=== PATIENT | female | born 1995 | race Caucasian/White ===

== ENCOUNTER 2016-12-25 19:44 | Emergency (ER) | payer OTHER ==
[~2016-12-25] VITALS: Ht 167.6 cm; Wt 69.3 kg
[~2016-12-25 19:44] MED LIST: TOPI100T20 PO; prozac PO; wellbutrin PO
[2016-12-25 19:50] VITALS: TEMP 36.8; Ht 167.6 cm; Wt 69.3 kg
[2016-12-25 20:35] LABS: BLOOD UREA NITROGEN 9 mg/dl (7-18); BUN/CREATININE RATIO 9.9 (10-20); CALCIUM 8.9 mg/dl (8.5-10.1); CARBON DIOXIDE 22 mmol/L (21-32); CHLORIDE 109 mmol/L (98-107); CREATININE 0.96 mg/dl (0.60-1.20); GLUCOSE 92 mg/dl (70-99); POTASSIUM 3.6 mmol/L (3.5-5.1); SODIUM 141 mmol/L (136-145)
[2016-12-25 20:41] LABS: PREG INTERNAL NEGATIVE QC NEG CLEAR BACKGROUND; PREG INTERNAL POSITIVE QC POS CONTROL LINE
--- NOTE | 2016-12-26 00:05 | EMERGENCY ROOM VISIT NOTE ---
History Report prepared by Roxie: Naa Ervin Under the Supervision of: Dr. Dexter Gunter D.O. 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 According to EMS the patient took 9 shots of vodka tonight after not drinking for 3 months. She was found by her roommates who called EMS due to the patient's vomiting while laying in bed. HPI is limited due to intoxication. Source of History: EMS History Limited By: intoxication Onset: AEROSPACE MEDICINE PHYSICIAN Position: other (g) Symptom Intensity: 9 vodka shots Associated Symptoms: + vomiting Review of Systems ROS limited to intoxication. Family History No pertinent family history Social History Smoking Status: Never Smoker Marital Status: single Housing Status: lives with roommate Occupation Status: [employer] student Current/Historical Medications Unable to Obtain Active Prescriptions or Reported Meds Allergies Coded Allergies: No Known Allergies (Unverified , 12/16/14) Physical Exam Vital Signs Date Time Temp Pulse Resp B/P Pulse Ox O2 Delivery O2 Flow Rate FiO2 12/26/16 00:47 88 103/63 99 12/25/16 22:00 87/47 95 Room Air 12/25/16 21:30 61 18 86/44 98 Room Air 12/25/16 20:32 79 12/25/16 20:10 Room Air 12/25/16 19:50 36.8 54 18 109/65 99 Room Air Physical Exam GENERAL: Laying on left side, moving all extremities saying get off me. Disheveled, breath smelled of alcohol HEAD: normocephalic and atraumatic. EYE EXAM: pupils 4 mm and reactive bilaterally OROPHARYNX: no exudate, no erythema, lips, buccal mucosa, and tongue normal and mucous membranes are moist NECK: supple, no nuchal rigidity, no adenopathy, non-tender LUNGS: Clear to auscultation. Normal chest wall mechanics HEART: no murmurs, S1 normal and S2 normal CHEST: Stable to compression anterior and posteriorly. ABDOMEN: abdomen soft, non-tender, normo-active bowel sounds, no masses, no rebound or guarding. BACK: Pelvis is stable to compression anterior and posteriorly. SKIN: no rashes and no bruising UPPER EXTREMITIES: upper extremities are grossly normal. LOWER EXTREMITIES: No pitting edema. NEURO EXAM: Alert initially agitated but following commands. No focal deficits. Medical Decision & Procedures Laboratory Results 12/25/16 20:06 Test 12/25/16 20:06 Anion Gap 10.0 mmol/L (3-11) Estimated GFR () 98.0 Estimated GFR (Non- 84.5 BUN/Creatinine Ratio 9.9 (10-20) Calcium Level 8.9 mg/dl (8.5-10.1) Human Chorionic Gonadotropin, Qual NEG (NEG) Ethyl Alcohol mg/dL 200.0 mg/dl (0-3) Laboratory results per my review. ED Course ED COURSE: Vital signs were reviewed and showed normal vitals The patients medical record was reviewed The above diagnostic studies were performed and reviewed. ED treatments and interventions as stated above. 1944: The patient was evaluated in room B5. A complete history and physical examination was performed. 1999: The patient was moved to room B4A. 8: I reevaluated the patient and she was awake and voiced that she is currently feeling good. 0035: Upon reevaluation, the patient is awake and resting comfortably. She was able to get up and ambulate.I discussed my findings with the patient and she understands and agrees with the treatment plan. The patient is able to be discharged with a ride home. Based on the patients age, coexisting illnesses, exam and lab findings the decision to treat as an outpatient was made.The patient remained stable while under my care.The patient appeared well at the time of discharge. Medical Decision Differential diagnosis includes etiologies such as alcohol intoxication, toxicologic, infection, hypoglycemia, electrolyte abnormalities, cardiac sources , intracerebral event, neurologic, as well as others were entertained. Patient is a 21-year-old female who presents the ER following taking 9 shots of vodka tonight with her friends. She started vomiting and consequently was brought in for evaluation. She has no other complaints. BMP was unremarkable. was negative. Alcohol was 200. Vitals was unremarkable. Upon reevaluation at 12 AM she was ambulating without difficulty caring a full conversation. She had no new complaints. No signs of any trauma. She was unable to contact a sober friend. She was discharged at 1245 conversing and ambulate without difficulty in a taxi. Discussed with Pt concerning signs and symptoms to watch out for. Pt was instructed to follow up with their PCP and discussed with the patient their option to return to the ED at anytime for persistent or worsening symptoms. The appropriate anticipatory guidance and out- patient management, including indications for return to the emergency department , were explained at length to the patient and understood. Impression Primary Impression: Alcohol abuse Additional Impression: Alcoholic intoxication Scribe Attestation The scribe's documentation has been prepared under my direction and personally reviewed by me in its entirety. I confirm that the note above accurately reflects all work, treatment, procedures, and medical decision making performed by me. Departure Information Dispostion Home / Self-Care Prescriptions Unable to Obtain Active Prescriptions or Reported Meds Referrals [facility] (PCP) Forms HOME CARE DOCUMENTATION FORM, IMPORTANT VISIT INFORMATION Additional Instructions Please follow up with your primary care doctor or if you are a student [facility] with in the next 24 hours. Any worsening of your symptoms, please return to the ED immediately. This includes new pain, confusion, fevers greater than 100.4, weakness or numbness in your arms or legs , or any other concerning signs or symptoms from your standpoint. Please do not drive until tomorrow afternoon as you'll be intoxicated until this morning. Problem Qualifiers Additional Impression: Alcoholic intoxication Complication of substance-induced condition: uncomplicated Qualified Codes: F10.120 - Alcohol abuse with intoxication, uncomplicated
[2016-12-26 00:47] VITALS: BP 103/63; PULSE 88; O2SAT 99
== END 2016-12-26 00:47 | disposition home or self-care (01) ==
LOC: EDBD 19:44 → C.EDB 19:45
DX: F10.120 Alcohol abuse with intoxication, uncomplicated (principal); Y90.7 Blood alcohol level of 200-239 mg/100 ml

== ENCOUNTER 2017-09-13 22:23 | Inpatient (IN) | payer OTHER ==
[~2017-09-13] VITALS: Ht 177.8 cm; Wt 64.6 kg
[2017-09-13] MEDS ORDERED: SODIUM CHLORIDE 0.9% 1000ML 1,000 ML IV STA (22:31)
--- NOTE | 2017-09-13 22:38 | EMERGENCY ROOM VISIT NOTE ---
History Report prepared by Roxie: Michael Esqueda Under the Supervision of: Dr. Jonas Marte D.O. First contact with patient: 22:24 Chief Complaint: OVERDOSE (INTENTIONAL) Stated Complaint: OVERDOSE, SEIZURE History of Present Illness This HPI is limited due to the poor cooperation of the patient. The patient is a 22 year old female who presents to the Emergency Room via EMS for a drug overdose. EMS state that police first arrived on scene and found the patient convulsing on the floor. EMS note that the patient took an unknown combination of drugs at 2145, 45 minutes prior to arrival. There was a suicide note present with the patient. security officer supervisor on scene states that the roommates phones for 911 after reading the note and watching her throw a "handful" of pills into her mouth. Source of History: EMS Onset: 45 minutes ASSISTANT MANAGER BILINGUAL Position: other (Tox) Quality: other (Drug overdose) Review of Systems Review of symptoms limited due to the poor cooperation of the patient. Past Medical & Surgical Medical Problems: (1) Intentional overdose of drug in tablet form (2) Seizure Family History No pertinent family history Social History Smoking Status: Never Smoker Marital Status: single Housing Status: lives with roommate Occupation Status: [employer] student Current/Historical Medications Unable to Obtain Active Prescriptions or Reported Meds Allergies Coded Allergies: No Known Allergies (Unverified , 12/16/14) Physical Exam Vital Signs Date Time Temp Pulse Resp B/P (MAP) Pulse Ox O2 Delivery O2 Flow Rate FiO2 09/14/17 01:04 74 18 105/61 94 Room Air 09/13/17 23:15 73 18 92/61 97 Room Air 09/13/17 22:37 97 Room Air 09/13/17 22:37 37.0 75 19 132/88 97 Room Air 09/13/17 22:36 63 Physical Exam GENERAL: Patient is awake, alert, and appears very anxious and guarded. She does not answer question's appropriately. EYES: The conjunctivae are injected bilaterally. The pupils are dilated but reactive to light. EARS, NOSE, MOUTH AND THROAT: The nose is without any evidence of any deformity. Mucous membranes are moist tongue is midline NECK: The neck is nontender and supple. RESPIRATORY: Normal respiratory effort is noted there is no evidence of wheezing rhonchi or rales CARDIOVASCULAR: Regular rate and rhythm noted there no murmurs rubs or gallops normal S1 normal S2 GASTROINTESTINAL: The abdomen is soft. Bowel sounds are present in all quadrants. Abdomen is nontender MUSCULOSKELETAL/EXTREMITIES: There is no evidence of gross deformity full range of motion is noted in the hips and shoulders SKIN: There is no obvious evidence of any rash. There are no petechiae, pallor or cyanosis noted. NEUROLOGIC: Patient is awake alert and oriented x3 strength is symmetric patellar reflexes are 2+ bilaterally PSYCH: Patient's affect is very flat, patient is refusing to answer questions. Medical Decision & Procedures ER Provider Diagnostic Interpretation: Radiology results as stated below per my review: CHEST X-RAY: Heart size is normal, no free air present, no definite infiltrate. No acute disease. CT HEAD: No acute intracranial abnormality. No ICH, mass effect or edema. Left maxillary sinus disease. Radiologist; Dallas Talbot MD Laboratory Results 09/13/17 22:40 Red Blood Count 4.88, Mean Corpuscular Volume 89.5, Mean Corpuscular Hemoglobin 32.2, Mean Corpuscular Hemoglobin Concent 35.9, Mean Platelet Volume 11.1, Neutrophils (%) (Auto) 61.5, Lymphocytes (%) (Auto) 24.4, Monocytes (%) (Auto) 10.4, Eosinophils (%) (Auto) 2.0, Basophils (%) (Auto) 1.3, Neutrophils # (Auto ) 4.36, Lymphocytes # (Auto) 1.73, Monocytes # (Auto) 0.74, Eosinophils # (Auto ) 0.14, Basophils # (Auto) 0.09 09/13/17 22:40 Test 09/13/17 22:40 09/13/17 23:00 White Blood Count 7.09 K/uL (4.8-10.8) Red Blood Count 4.88 M/uL (4.2-5.4) Hemoglobin 15.7 g/dL (12.0-16.0) Hematocrit 43.7 % (37-47) Mean Corpuscular Volume 89.5 fL (80-100) Mean Corpuscular Hemoglobin 32.2 pg (25-34) Mean Corpuscular Hemoglobin Concent 35.9 g/dl (32-36) Platelet Count 143 K/uL (130-400) Mean Platelet Volume 11.1 fL (7.4-10.4) Neutrophils (%) (Auto) 61.5 % Lymphocytes (%) (Auto) 24.4 % Monocytes (%) (Auto) 10.4 % Eosinophils (%) (Auto) 2.0 % Basophils (%) (Auto) 1.3 % Neutrophils # (Auto) 4.36 K/uL (1.4-6.5) Lymphocytes # (Auto) 1.73 K/uL (1.2-3.4) Monocytes # (Auto) 0.74 K/uL (0.11-0.59) Eosinophils # (Auto) 0.14 K/uL (0-0.5) Basophils # (Auto) 0.09 K/uL (0-0.2) RDW Standard Deviation 42.6 fL (36.4-46.3) RDW Coefficient of Variation 13.3 % (11.5-14.5) Immature Granulocyte % (Auto) 0.4 % Immature Granulocyte # (Auto) 0.03 K/uL (0.00-0.02) Prothrombin Time 10.0 SECONDS (9.0-12.0) Prothromb Time International Ratio 1.0 (0.9-1.1) Activated Partial Thromboplast Time 25.3 SECONDS (21.0-31.0) Partial Thromboplastin Ratio 1.0 Anion Gap 11.0 mmol/L (3-11) Est Creatinine Clear Calc Drug Dose 93.6 ml/min Estimated GFR () 90.4 Estimated GFR (Non- 78.0 BUN/Creatinine Ratio 8.2 (10-20) Osmolality 330 mOsm/kg (280-300) Calcium Level 8.0 mg/dl (8.5-10.1) Total Bilirubin 0.2 mg/dl (0.2-1) Direct Bilirubin mg/dl (0-0.2) Aspartate Amino Transf (AST/SGOT) 24 U/L (15-37) Alanine Aminotransferase (ALT/SGPT) 24 U/L (12-78) Alkaline Phosphatase 85 U/L (45-117) Total Creatine Kinase 98 U/L (26-192) Creatine Kinase MB 1.1 ng/ml (0.5-3.6) Creatine Kinase MB Ratio 1.1 (0-3.0) Troponin I < 0.015 ng/ml (0-0.045) Total Protein 6.7 gm/dl (6.4-8.2) Albumin 3.3 gm/dl (3.4-5.0) Lipase 105 U/L (73-393) Human Chorionic Gonadotropin, Qual NEG (NEG) Chemistry Specimen Hemolysis Salicylates Level < 1.7 mg/dl (2.8-20) Acetaminophen Level < 2 ug/ml (10-30) Ethyl Alcohol mg/dL 167.0 mg/dl (0-3) Urine Color YELLOW Urine Appearance CLEAR (CLEAR) Urine pH 7.5 (4.5-7.5) Urine Specific [place] 1.011 (1.000-1.030) Urine Protein NEG (NEG) Urine Glucose (UA) NEG (NEG) Urine Ketones NEG (NEG) Urine Occult Blood NEG (NEG) Urine Nitrite NEG (NEG) Urine Bilirubin NEG (NEG) Urine Urobilinogen NEG (NEG) Urine Leukocyte Esterase MODERATE (NEG) Urine WBC (Auto) 10-30 /hpf (0-5) Urine RBC (Auto) 0-4 /hpf (0-4) Urine Hyaline Casts (Auto) 1-5 /lpf (0-5) Urine Epithelial Cells (Auto) >30 /lpf (0-5) Urine Bacteria (Auto) 1+ (NEG) Urine Opiates Screen NEG (NEG) Urine Methadone, Qualitative NEG (NEG) Urine Barbiturates NEG (NEG) Urine Phencyclidine (PCP) Level NEG (NEG) Ur Amphetamine/Methamphetamine NEG (NEG) MDMA (Ecstasy) Screen POS (NEG) Urine Benzodiazepines Screen NEG (NEG) Urine Cocaine Metabolite NEG (NEG) Urine Marijuana (THC) POS (NEG) Laboratory results per my review. Medications Administered Medications (Trade) Dose Ordered Sig/John Route Start Time Stop Time Status Last Admin Dose Admin Sodium Chloride 1,000 ml @ 999 mls/hr Q1H1M STAT IV 09/13/17 22:31 09/13/17 23:31 DC 09/13/17 22:44 999 MLS/HR ECG Indication: toxicologic Rate (beats per minute): 85 Rhythm: normal sinus Findings: no acute ischemic change, no ectopy Comparison ECG Date: no prior available ED Course 2226: The patient was evaluated in room B1. A complete history and physical examination were performed. 223: Ordered Sodium Chloride 1000 mL @ 999 mL/hr IV. 2245: Nursing staff consulted the poison control center at this time. They state no charcoal use because the patient is at-risk for aspiration. They suggest a 24-hour observation. 0110: Dr. Gregg CASPER will observe the patient for further care. Medical Decision Differential diagnosis: Etiologies such as toxicologic, infection, hypoglycemia, electrolyte abnormalities, cardiac sources, intracerebral event, neurologic, as well as others were entertained. Nursing notes reviewed. Additional history is obtained from the prehospital personnel. Additional history is obtained from the police. The patient is a 22-year-old female who presented to the emergency department after a suspected suicidal gesture. The patient has had significant anxiety problems lately she does have a history of mental health problems and it sounds as though she took multiple doses of her medications in an attempt to harm herself. The patient arrived at the emergency department with police. Initially she was not willing to speak with me. The patient was medically cleared in the emergency department. There was a history of a seizure at the onset of the patient's overdose. Given her psychiatric medications this was felt to be a high risk situation. We discussed his case with the Poison Control Center. They have recommended that the patient be observed medically for 12-24 hours prior to medical clearance. The patient was treated with IV fluids in the emergency department. She was reevaluated multiple times. No further seizure activity was observed. The patient was evaluated by the [facility] hospitalist group for inpatient management. Consults Time Called: 0110 Consulting Physician: Dr. Gregg CASPER Hospitalist Returned Call: 0110 Dr. Gregg CASPER Hospitalist will evaluate the patient for further care. Impression Primary Impression: Polysubstance overdose Additional Impressions: Seizure Suicidal ideation Scribe Attestation The scribe's documentation has been prepared under my direction and personally reviewed by me in its entirety. I confirm that the note above accurately reflects all work, treatment, procedures, and medical decision making performed by me. Departure Information Dispostion Being Evaluated By Hospitalist Prescriptions Unable to Obtain Active Prescriptions or Reported Meds Referrals [facility] (PCP) Patient Instructions My [facility] Health Problem Qualifiers Primary Impression: Polysubstance overdose Encounter type: initial encounter Injury intent: intentional self-harm Qualified Codes: T50.902A - Poisoning by unspecified drugs, medicaments and biological substances, intentional self-harm, initial encounter
[2017-09-13 22:51] LABS: BASO % 1.3 %; BASO ABS # 0.09 K/uL (0-0.2); EOS ABS # 0.14 K/uL (0-0.5); HEMATOCRIT 43.7 % (37-47); HEMOGLOBIN 15.7 g/dL (12.0-16.0); IG# 0.03 K/uL (0.00-0.02); LYMPH % 24.4 %; LYMPH ABS # 1.73 K/uL (1.2-3.4); MEAN CELL VOLUME 89.5 fL (80-100); MEAN CORPUSCULAR HEMOGLOBIN 32.2 pg (25-34); MEAN CORPUSCULAR HGB CONC 35.9 g/dl (32-36); MEAN PLATELET VOLUME 11.1 fL (7.4-10.4); MONO % 10.4 %; MONO ABS # 0.74 K/uL (0.11-0.59); NEUT % 61.5 %; NEUT ABS # 4.36 K/uL (1.4-6.5); PLATELET COUNT 143 K/uL (130-400); RED CELL DISTRIBUTION WIDTH CV 13.3 % (11.5-14.5); RED CELL DISTRIBUTION WIDTH SD 42.6 fL (36.4-46.3); WHITE BLOOD COUNT 7.09 K/uL (4.8-10.8)
[2017-09-13 23:02] LABS: PTT PATIENT 25.3 SECONDS (21.0-31.0)
[2017-09-13 23:36] LABS: ALBUMIN 3.3 gm/dl (3.4-5.0); ALKALINE PHOSPHATASE 85 U/L (45-117); ALT/SGPT 24 U/L (12-78); AST/SGOT 24 U/L (15-37); BLOOD UREA NITROGEN 8 mg/dl (7-18); CARBON DIOXIDE 24 mmol/L (21-32); CKMB 1.1 ng/ml (0.5-3.6); CREATININE 1.02 mg/dl (0.60-1.20); GLUCOSE 91 mg/dl (70-99); LIPASE 105 U/L (73-393); POTASSIUM 3.5 mmol/L (3.5-5.1); SODIUM 142 mmol/L (136-145); TOTAL PROTEIN 6.7 gm/dl (6.4-8.2)
[2017-09-14] VITALS (7 sets, daily range): BP systolic 89–132; BP diastolic 61–110; PULSE 70–111; TEMP 36.4–36.9; O2SAT 96–99; Ht 177.8 cm; Wt 64.6 kg
[2017-09-14] MEDS ORDERED: MAGNESIUM HYDROXIDE SUSP 30 ML UDC PO PRN (01:15)
[2017-09-14] MEDS ORDERED: POLYETHYLENE (MIRALAX) 17 GM PACK PO PRN (01:15)
[2017-09-14] MEDS ORDERED: D5NSS + 20MEQ KCL 1,000 ML IV SCH (01:15)
[2017-09-14] MEDS ORDERED: LORAZEPAM 2 MG/ML 1 ML VIAL IV PRN (01:15)
[2017-09-14] MEDS ORDERED: ACETAMINOPHEN 325 MG TAB PO PRN (01:15)
[2017-09-14] MEDS ORDERED: ALUMINUM/MAGNESIUM/SIMETH (MAALOX MAX) 30 ML UDC PO PRN (01:15)
--- NOTE | 2017-09-14 01:59 | History and Physical ---
History & Physical Date & Time of Service: Sep 14, 2017 at 01:09 Chief Complaint: Overdose, Seizure Primary Care Physician: [facility] History of Present Illness Source: patient 22 y/o F who is intentionally uncommunicative at the time of admission. She was with a few friends who witnessed her taking a handful of various medications. They called the police who reported that she had a witnessed seizure when they arrived. We could not confirm tongue biting or incontinence. She was fully awake at the time of admission. She provides short answers to any questions if that and states "I don't know" to most questions including questions regarding her ingestion and her own medical history. The pt did leave a suicide note behind which implicates some friends in her intentional overdose and basically admits to suicidal intent. Initial tox screen is + for MDMA and THC. Her ETOH level is 168. Medications found at her house by police are as follows: Topamax Wellbutrin Abilify Doxycycline Cymbalta She is apparently noncompliant with her medications so that although we can count the remaining pills in each bottle and confirm the fill dates, we cannot know how many of each she took today. Poison control was contacted by the ER and per the available list of medications, have advised on supportive measures only. Past Medical/Surgical History Presumed history of depression based on current med list Family History No pertinent family history Would not provide - volunteered that both parents are alive Social History Cannot obtain Smoking Status: Never Smoker Marital Status: single Occupational Status: [employer] student Allergies Coded Allergies: No Known Allergies (Unverified , 12/16/14) Home Medications Unable to Obtain Active Prescriptions or Reported Meds Review of Systems Patient would not answer questions Physical Exam Vital Signs Date Time Temp Pulse Resp B/P (MAP) Pulse Ox O2 Delivery O2 Flow Rate FiO2 09/14/17 01:04 74 18 105/61 94 Room Air 09/13/17 23:15 73 18 92/61 97 Room Air 09/13/17 22:37 97 Room Air 09/13/17 22:37 37.0 75 19 132/88 97 Room Air 09/13/17 22:36 63 General Appearance: WD/WN, no apparent distress Head: normocephalic Eyes: normal inspection ENT: normal ENT inspection, pharynx normal Neck: supple, no JVD Respiratory/Chest: chest non-tender, lungs clear, normal breath sounds Cardiovascular: regular rate, rhythm, no edema, no gallop Abdomen/GI: normal bowel sounds, non tender, soft Back: normal inspection, no CVA tenderness Extremities/Musculoskelatal: normal inspection, no calf tenderness, normal capillary refill, no pedal edema, normal range of motion Neurologic/Psych: music 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-XII nml as tested, no motor/sensory deficits, alert, oriented x 3 Skin: normal color, warm/dry, no rash Diagnostics Laboratory Results Results Past 24 Hours Test 09/13/17 22:40 09/13/17 23:00 Range/Units White Blood Count 7.09 4.8-10.8 K/uL Red Blood Count 4.88 4.2-5.4 M/uL Hemoglobin 15.7 12.0-16.0 g/dL Hematocrit 43.7 37-47 % Mean Corpuscular Volume 89.5 80-100 fL Mean Corpuscular Hemoglobin 32.2 25-34 pg Mean Corpuscular Hemoglobin Concent 35.9 32-36 g/dl Platelet Count 143 130-400 K/uL Mean Platelet Volume 11.1 7.4-10.4 fL Neutrophils (%) (Auto) 61.5 % Lymphocytes (%) (Auto) 24.4 % Monocytes (%) (Auto) 10.4 % Eosinophils (%) (Auto) 2.0 % Basophils (%) (Auto) 1.3 % Neutrophils # (Auto) 4.36 1.4-6.5 K/uL Lymphocytes # (Auto) 1.73 1.2-3.4 K/uL Monocytes # (Auto) 0.74 0.11-0.59 K/uL Eosinophils # (Auto) 0.14 0-0.5 K/uL Basophils # (Auto) 0.09 0-0.2 K/uL RDW Standard Deviation 42.6 36.4-46.3 fL RDW Coefficient of Variation 13.3 11.5-14.5 % Immature Granulocyte % (Auto) 0.4 % Immature Granulocyte # (Auto) 0.03 0.00-0.02 K/uL Prothrombin Time 10.0 9.0-12.0 SECONDS Prothromb Time International Ratio 1.0 0.9-1.1 Activated Partial Thromboplast Time 25.3 21.0-31.0 SECONDS Partial Thromboplastin Ratio 1.0 Sodium Level 142 136-145 mmol/L Potassium Level 3.5 3.5-5.1 mmol/L Chloride Level 107 98-107 mmol/L Carbon Dioxide Level 24 21-32 mmol/L Anion Gap 11.0 3-11 mmol/L Blood Urea Nitrogen 8 7-18 mg/dl Creatinine 1.02 0.60-1.20 mg/dl Est Creatinine Clear Calc Drug Dose 93.6 ml/min Estimated GFR () 90.4 Estimated GFR (Non- 78.0 BUN/Creatinine Ratio 8.2 10-20 Random Glucose 91 70-99 mg/dl Osmolality 330 280-300 mOsm/kg Calcium Level 8.0 8.5-10.1 mg/dl Total Bilirubin 0.2 0.2-1 mg/dl Direct Bilirubin 0-0.2 mg/dl Aspartate Amino Transf (AST/SGOT) 24 15-37 U/L Alanine Aminotransferase (ALT/SGPT) 24 12-78 U/L Alkaline Phosphatase 85 45-117 U/L Total Creatine Kinase 98 26-192 U/L Creatine Kinase MB 1.1 0.5-3.6 ng/ml Creatine Kinase MB Ratio 1.1 0-3.0 Troponin I < 0.015 0-0.045 ng/ml Total Protein 6.7 6.4-8.2 gm/dl Albumin 3.3 3.4-5.0 gm/dl Lipase 105 73-393 U/L Human Chorionic Gonadotropin, Qual NEG NEG Chemistry Specimen Hemolysis Salicylates Level < 1.7 2.8-20 mg/dl Acetaminophen Level < 2 10-30 ug/ml Ethyl Alcohol mg/dL 167.0 0-3 mg/dl Urine Color YELLOW Urine Appearance CLEAR CLEAR Urine pH 7.5 4.5-7.5 Urine Specific [place] 1.011 1.000-1.030 Urine Protein NEG NEG Urine Glucose (UA) NEG NEG Urine Ketones NEG NEG Urine Occult Blood NEG NEG Urine Nitrite NEG NEG Urine Bilirubin NEG NEG Urine Urobilinogen NEG NEG Urine Leukocyte Esterase MODERATE NEG Urine WBC (Auto) 10-30 0-5 /hpf Urine RBC (Auto) 0-4 0-4 /hpf Urine Hyaline Casts (Auto) 1-5 0-5 /lpf Urine Epithelial Cells (Auto) >30 0-5 /lpf Urine Bacteria (Auto) 1+ NEG Urine Opiates Screen NEG NEG Urine Methadone, Qualitative NEG NEG Urine Barbiturates NEG NEG Urine Phencyclidine (PCP) Level NEG NEG Ur Amphetamine/Methamphetamine NEG NEG MDMA (Ecstasy) Screen POS NEG Urine Benzodiazepines Screen NEG NEG Urine Cocaine Metabolite NEG NEG Urine Marijuana (THC) POS NEG Normal EKG Impression Assessment and Plan 22 y/o F who is intentionally uncommunicative at the time of admission. She was with a few friends who witnessed her taking a handful of various medications. They called the police who reported that she had a witnessed seizure when they arrived. We could not confirm tongue biting or incontinence. She was fully awake at the time of admission. She provides short answers to any questions if that and states "I don't know" to most questions including questions regarding her ingestion and her own medical history. The pt did leave a suicide note behind which implicates some friends in her intentional overdose and basically admits to suicidal intent. Initial tox screen is + for MDMA and THC. Her ETOH level is 168. The pt is assigned to telemetry with one to one observation and seizure precautions. We will check an EKG at regular intervals to assess for QT prolongation. We will provide aggressive hydration. The pt will be evaluated by mental health after she is medically cleared. Regarding her seizure - this may have been due to ETOH ingestion, drug ingestion or a combination of both. PRN Ativan is provided and agian, she has been placed on seizure precautions. Full code - SCDs due to seizure/fall risk Total time for this admit including review of labs, meds, imaging, EKG - discussion with pt and ER attending - 40 min Level of Care Telemetry Resuscitation Status FULL RESUSCITATION VTE Prophylaxis VTE Risk Assessment Done? Y/N: Yes Risk Level: Very Low Given or contraindicated: SCD's
[2017-09-14] MEDS: D5NSS + 20MEQ KCL 1,000 ML IV SCH ×2 (03:28→10:22)
--- NOTE | 2017-09-14 06:37 | DIAGNOSTIC IMAGING REPORT ---
HEAD WITHOUT CONTRAST (CT) CLINICAL HISTORY: 22 years-old Female with OVERDOSE. Acute drug overdose. TECHNIQUE: Multiple axial CT images of the head were obtained without contrast. A dose lowering technique was utilized adhering to the principles of ALARA. CT DOSE: 537.48 mGy.cm COMPARISON: None. FINDINGS: No acute intracranial hemorrhage, midline shift, intracranial mass, hydrocephalus, territorial ischemia or abnormal extra-axial collection. The calvarium is intact. The mastoid air cells, and middle ear cavities are clear. Partially imaged mild left maxillary sinus disease. IMPRESSION: No acute intracranial abnormality. The above report was generated using voice recognition software. It may contain grammatical, syntax or spelling errors. Electronically signed by: Carl Joseph M.D. 09/14/2017 6:35 AM Dictated Date/Time: 09/14/2017 6:34 AM
--- NOTE | 2017-09-14 06:57 | DIAGNOSTIC IMAGING REPORT ---
CHEST ONE VIEW PORTABLE HISTORY: 22 years-old Female Overdose acute drug overdose COMPARISON: None available TECHNIQUE: Portable AP view of the chest FINDINGS: Patient is slightly rotated to the right. Cardiomediastinal and hilar silhouettes are within normal limits. No pneumothorax, pleural effusion, focal airspace consolidation or overt pulmonary edema. Bones of the chest appear grossly intact. IMPRESSION: No acute process. The above report was generated using voice recognition software. It may contain grammatical, syntax or spelling errors. Electronically signed by: Carl Joseph M.D. 09/14/2017 6:55 AM Dictated Date/Time: 09/14/2017 6:54 AM
[2017-09-14] MEDS ORDERED: INFLUENZA ADMINISTRATION CHARGE ONE (08:00)
[2017-09-14] MEDS ORDERED: INFLUENZA VIRUS QUAD VACCINE 0.5 ML SYR IM. ONE (08:00)
[2017-09-14] MEDS: ONDANSETRON INJ 2 MG/ML 2 ML VIAL IV PRN (08:46)
[2017-09-14] MEDS ORDERED: LEVETIRACETAM IV 1,000 MG in DEXTROSE 5% 100ML 100 ML IV STA (10:30)
--- NOTE | 2017-09-14 12:23 | EEG Procedure Note ---
EEG Procedure Note Date of Service Sep 14, 2017. Start / End Times Start Time: 10:45 AM End Time: 11:05 AM Referring Physician Robb Dickey History This is a 22-year-old female with drug overdose and possible seizure-like activity. EEG for further evaluation of possible seizure etiology. Home Medication List Unable to Obtain Active Prescriptions or Reported Meds Inpatient Medication List Current Inpatient Medications Medications (Trade) Dose Ordered Sig/John Route Start Time Stop Time Status Last Admin Dose Admin Acetaminophen (Tylenol Tab) 650 mg Q4H PRN PO 09/14/17 01:15 10/14/17 01:14 Al Hydrox/Mg Hydrox/Simethicone (Maalox Max Susp) 15 ml Q4H PRN PO 09/14/17 01:15 10/14/17 01:14 Magnesium Hydroxide (Milk Of Magnesia Susp) 30 ml Q12H PRN PO 09/14/17 01:15 10/14/17 01:14 Ondansetron HCl (Zofran Inj) 4 mg Q6H PRN IV 09/14/17 01:15 10/14/17 01:14 09/14/17 08:46 4 MG Polyethylene (Miralax Powder Packet) 17 gm DAILY PRN PO 09/14/17 01:15 10/14/17 01:14 Lorazepam (Ativan Inj) 2 mg Q2H PRN IV 09/14/17 01:15 10/14/17 01:14 09/14/17 10:21 2 MG Potassium Chloride/Dextrose/ Sod Cl 1,000 ml @ 150 mls/hr Q6H40M IV 09/14/17 03:30 09/14/17 16:49 09/14/17 10:22 150 MLS/HR Levetiracetam (Keppra Tab) 500 mg BID PO 09/14/17 21:00 10/14/17 20:59 Description This is a 21 electrode EEG with a single channel dedicated to limited EKG. The electrodes were placed in accordance with the International 10-20 system. Frequent movement artifact noted At the start of the recording the patient was in reported altered mental status. Background was well organized and composed of symmetric mixed alpha and beta frequencies. There was a symmetric well-formed moderate amplitude 9-10 Hz posterior dominant rhythm that was reactive to eye opening and closure. Hyperventilation was not done. Intermittent photic stimulation at various frequencies produced no abnormalities. There was no state changes or sleep transients. Interpretation This is a normal awake only routine EEG. There was no electrographic seizures or epileptiform discharges. Clinical Correlation A normal EEG does not rule out epilepsy if there is a strong clinical suspicion. EEG technical quality was mildly limited by frequent movement artifact.
--- NOTE | 2017-09-14 12:36 | Psychiatric Progress Notes ---
Progress Note Date of Service Sep 14, 2017. 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 She is admitted medically and we are consulted to manage depression. Information is gathered from the patient, and the EHR and considered to be reliable. Chief Complaint "I've been depressed all my life.". Subjective Patient was seen & assessed interval progress reviewed with [Treatment Team] [ Nursing] Data Vital Signs Last 24 Hrs: Date Time Temp Pulse Resp B/P (MAP) Pulse Ox O2 Delivery O2 Flow Rate FiO2 09/14/17 11:52 36.4 111 20 111/69 (83) 96 Room Air 09/14/17 08:00 Room Air 09/14/17 07:40 36.9 70 20 104/68 (80) 99 Room Air 09/14/17 06:54 36.8 70 14 89/66 (74) 97 Room Air 09/14/17 04:00 Room Air 09/14/17 01:50 Room Air 09/14/17 01:50 36.9 85 24 107/66 98 T-piece 09/14/17 01:04 74 18 105/61 94 Room Air 09/13/17 23:15 73 18 92/61 97 Room Air 09/13/17 22:37 97 Room Air 09/13/17 22:37 37.0 75 19 132/88 97 Room Air 09/13/17 22:36 63 Meds Administered Last 24 Hrs: Meds Administered (Past 24Hrs) Medications (Trade) Dose Ordered Sig/John Route Start Time Stop Time Status Last Admin Dose Admin Sodium Chloride 1,000 ml @ 999 mls/hr Q1H1M STAT IV 09/13/17 22:31 09/13/17 23:31 DC 09/13/17 22:44 999 MLS/HR Ondansetron HCl (Zofran Inj) 4 mg Q6H PRN IV 09/14/17 01:15 10/14/17 01:14 09/14/17 08:46 4 MG Lorazepam (Ativan Inj) 2 mg Q2H PRN IV 09/14/17 01:15 10/14/17 01:14 09/14/17 10:21 2 MG Potassium Chloride/Dextrose/ Sod Cl 1,000 ml @ 150 mls/hr Q6H40M IV 09/14/17 03:30 09/14/17 16:49 09/14/17 10:22 150 MLS/HR Levetiracetam 1000 mg/Dextrose 110 ml @ 440 mls/hr ONE STAT IV 09/14/17 10:30 09/14/17 10:44 DC 09/14/17 11:00 440 MLS/HR Lab Results Last 24 Hrs: Last 24 Hours Test 09/13/17 22:40 09/13/17 23:00 White Blood Count 7.09 K/uL Red Blood Count 4.88 M/uL Hemoglobin 15.7 g/dL Hematocrit 43.7 % Mean Corpuscular Volume 89.5 fL Mean Corpuscular Hemoglobin 32.2 pg Mean Corpuscular Hemoglobin Concent 35.9 g/dl Platelet Count 143 K/uL Mean Platelet Volume 11.1 fL Neutrophils (%) (Auto) 61.5 % Lymphocytes (%) (Auto) 24.4 % Monocytes (%) (Auto) 10.4 % Eosinophils (%) (Auto) 2.0 % Basophils (%) (Auto) 1.3 % Neutrophils # (Auto) 4.36 K/uL Lymphocytes # (Auto) 1.73 K/uL Monocytes # (Auto) 0.74 K/uL Eosinophils # (Auto) 0.14 K/uL Basophils # (Auto) 0.09 K/uL RDW Standard Deviation 42.6 fL RDW Coefficient of Variation 13.3 % Immature Granulocyte % (Auto) 0.4 % Immature Granulocyte # (Auto) 0.03 K/uL Prothrombin Time 10.0 SECONDS Prothromb Time International Ratio 1.0 Activated Partial Thromboplast Time 25.3 SECONDS Partial Thromboplastin Ratio 1.0 Sodium Level 142 mmol/L Potassium Level 3.5 mmol/L Chloride Level 107 mmol/L Carbon Dioxide Level 24 mmol/L Anion Gap 11.0 mmol/L Blood Urea Nitrogen 8 mg/dl Creatinine 1.02 mg/dl Est Creatinine Clear Calc Drug Dose 93.6 ml/min Estimated GFR () 90.4 Estimated GFR (Non- 78.0 BUN/Creatinine Ratio 8.2 Random Glucose 91 mg/dl Osmolality 330 mOsm/kg Calcium Level 8.0 mg/dl Total Bilirubin 0.2 mg/dl Direct Bilirubin mg/dl Aspartate Amino Transf (AST/SGOT) 24 U/L Alanine Aminotransferase (ALT/SGPT) 24 U/L Alkaline Phosphatase 85 U/L Total Creatine Kinase 98 U/L Creatine Kinase MB 1.1 ng/ml Creatine Kinase MB Ratio 1.1 Troponin I < 0.015 ng/ml Total Protein 6.7 gm/dl Albumin 3.3 gm/dl Lipase 105 U/L Human Chorionic Gonadotropin, Qual NEG Chemistry Specimen Hemolysis Salicylates Level < 1.7 mg/dl Acetaminophen Level < 2 ug/ml Ethyl Alcohol mg/dL 167.0 mg/dl Urine Color YELLOW Urine Appearance CLEAR Urine pH 7.5 Urine Specific [place] 1.011 Urine Protein NEG Urine Glucose (UA) NEG Urine Ketones NEG Urine Occult Blood NEG Urine Nitrite NEG Urine Bilirubin NEG Urine Urobilinogen NEG Urine Leukocyte Esterase MODERATE Urine WBC (Auto) 10-30 /hpf Urine RBC (Auto) 0-4 /hpf Urine Hyaline Casts (Auto) 1-5 /lpf Urine Epithelial Cells (Auto) >30 /lpf Urine Bacteria (Auto) 1+ Urine Opiates Screen NEG Urine Methadone, Qualitative NEG Urine Barbiturates NEG Urine Phencyclidine (PCP) Level NEG Ur Amphetamine/Methamphetamine NEG MDMA (Ecstasy) Screen POS Urine Benzodiazepines Screen NEG Urine Cocaine Metabolite NEG Urine Marijuana (THC) POS
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
--- NOTE | 2017-09-14 13:46 | DIAGNOSTIC IMAGING REPORT ---
BRAIN W/O FOR SEIZURE HISTORY: 22 years-old Female seizure acute seizure with intentional drug overdose COMPARISON: Head CT 09/13/2017 TECHNIQUE: Multiplanar multisequence MRI of the brain obtained without use of contrast utilizing seizure protocol. FINDINGS: Large field view water supply engineer localizer images demonstrate no gross abnormality. There is no restricted diffusion to suggest acute infarction. The midline structures including the corpus callosum, brainstem, optic chiasm, infundibulum, pituitary and pineal glands are unremarkable on the sagittal T1 series. No cerebellar tonsillar herniation. No significant degenerative changes of the imaged cervical spine. There is no acute intracranial hemorrhage, midline shift, abnormal extra-axial collections, hydrocephalus or intracranial mass identified. No seizure focus or cortical dysplasia identified. No evidence of mesial temporal sclerosis. The major flow voids at the level of the skull base appear patent. Mastoid air cells are clear. Moderate mucosal thickening of the paranasal sinuses with bubbly secretions noted within the left maxillary sinus. The orbits are symmetric. Scalp, calvarium and soft tissues are unremarkable. IMPRESSION: 1. No acute intracranial abnormality. No seizure focus identified. 2. Moderate maxillary sinus disease. The above report was generated using voice recognition software. It may contain grammatical, syntax or spelling errors. Electronically signed by: Carl Joseph M.D. 09/14/2017 1:45 PM Dictated Date/Time: 09/14/2017 1:36 PM
--- NOTE | 2017-09-14 16:21 | Progress Note ---
Subjective Date of Service: Sep 14, 2017. Subjective this pt is with poor recollection of events leading up to this time, she however does seem to know what to say from previous exposure to mental health and she does admit to previous suiscide attempts I witnesses a grand mal seizure with apnea and hypoxia for approximately one minute, that self resolved, she was given emergent ativan and oxygen. I personally phoned neurology and discussed choice of antiepileptic med, chose Keppra and gave a loading dose, ordered EEG and MRI Problem List Medical Problems: (1) Alcohol abuse Status: Acute (2) Alcoholic intoxication Status: Acute (3) Polysubstance overdose Status: Acute (4) Suicidal ideation Status: Acute Review of Systems Constitutional: No fever, No chills, No weakness, No fatigue Cardiac: No chest pain, No edema Abdomen: No pain, No nausea, No vomiting, No diarrhea Musculoskeletal: No joint pain, No muscle pain Neurologic: + memory loss, + weakness Psychiatric: + depression symptoms, + anxiety, + substance abuse Objective Vital Signs Date Time Temp Pulse Resp B/P (MAP) Pulse Ox O2 Delivery O2 Flow Rate FiO2 09/14/17 15:43 36.9 97 18 132/110 (117) 96 Room Air 09/14/17 12:00 Room Air 09/14/17 11:52 36.4 111 20 111/69 (83) 96 Room Air 09/14/17 08:00 Room Air 09/14/17 07:40 36.9 70 20 104/68 (80) 99 Room Air 09/14/17 06:54 36.8 70 14 89/66 (74) 97 Room Air 09/14/17 04:00 Room Air 09/14/17 01:50 Room Air 09/14/17 01:50 36.9 85 24 107/66 98 T-piece 09/14/17 01:04 74 18 105/61 94 Room Air 09/13/17 23:15 73 18 92/61 97 Room Air 09/13/17 22:37 97 Room Air 09/13/17 22:37 37.0 75 19 132/88 97 Room Air 09/13/17 22:36 63 Physical Exam General Appearance: WD/WN, no apparent distress (but appears anxious) Eyes: normal inspection, PERRL, EOMI, sclerae normal ENT: normal ENT inspection, pharynx normal Respiratory/Chest: chest non-tender, lungs clear, normal breath sounds Cardiovascular: regular rate, rhythm, no murmur Abdomen: normal bowel sounds, non tender, soft Neurologic/Psychiatric: alert, oriented x 3 Laboratory Results Last 24 Hours Test 09/13/17 22:40 09/13/17 23:00 White Blood Count 7.09 K/uL Red Blood Count 4.88 M/uL Hemoglobin 15.7 g/dL Hematocrit 43.7 % Mean Corpuscular Volume 89.5 fL Mean Corpuscular Hemoglobin 32.2 pg Mean Corpuscular Hemoglobin Concent 35.9 g/dl Platelet Count 143 K/uL Mean Platelet Volume 11.1 fL Neutrophils (%) (Auto) 61.5 % Lymphocytes (%) (Auto) 24.4 % Monocytes (%) (Auto) 10.4 % Eosinophils (%) (Auto) 2.0 % Basophils (%) (Auto) 1.3 % Neutrophils # (Auto) 4.36 K/uL Lymphocytes # (Auto) 1.73 K/uL Monocytes # (Auto) 0.74 K/uL Eosinophils # (Auto) 0.14 K/uL Basophils # (Auto) 0.09 K/uL RDW Standard Deviation 42.6 fL RDW Coefficient of Variation 13.3 % Immature Granulocyte % (Auto) 0.4 % Immature Granulocyte # (Auto) 0.03 K/uL Prothrombin Time 10.0 SECONDS Prothromb Time International Ratio 1.0 Activated Partial Thromboplast Time 25.3 SECONDS Partial Thromboplastin Ratio 1.0 Sodium Level 142 mmol/L Potassium Level 3.5 mmol/L Chloride Level 107 mmol/L Carbon Dioxide Level 24 mmol/L Anion Gap 11.0 mmol/L Blood Urea Nitrogen 8 mg/dl Creatinine 1.02 mg/dl Est Creatinine Clear Calc Drug Dose 93.6 ml/min Estimated GFR () 90.4 Estimated GFR (Non- 78.0 BUN/Creatinine Ratio 8.2 Random Glucose 91 mg/dl Osmolality 330 mOsm/kg Calcium Level 8.0 mg/dl Total Bilirubin 0.2 mg/dl Direct Bilirubin mg/dl Aspartate Amino Transf (AST/SGOT) 24 U/L Alanine Aminotransferase (ALT/SGPT) 24 U/L Alkaline Phosphatase 85 U/L Total Creatine Kinase 98 U/L Creatine Kinase MB 1.1 ng/ml Creatine Kinase MB Ratio 1.1 Troponin I < 0.015 ng/ml Total Protein 6.7 gm/dl Albumin 3.3 gm/dl Lipase 105 U/L Human Chorionic Gonadotropin, Qual NEG Chemistry Specimen Hemolysis Salicylates Level < 1.7 mg/dl Acetaminophen Level < 2 ug/ml Ethyl Alcohol mg/dL 167.0 mg/dl Urine Color YELLOW Urine Appearance CLEAR Urine pH 7.5 Urine Specific [place] 1.011 Urine Protein NEG Urine Glucose (UA) NEG Urine Ketones NEG Urine Occult Blood NEG Urine Nitrite NEG Urine Bilirubin NEG Urine Urobilinogen NEG Urine Leukocyte Esterase MODERATE Urine WBC (Auto) 10-30 /hpf Urine RBC (Auto) 0-4 /hpf Urine Hyaline Casts (Auto) 1-5 /lpf Urine Epithelial Cells (Auto) >30 /lpf Urine Bacteria (Auto) 1+ Urine Opiates Screen NEG Urine Methadone, Qualitative NEG Urine Barbiturates NEG Urine Phencyclidine (PCP) Level NEG Ur Amphetamine/Methamphetamine NEG MDMA (Ecstasy) Screen POS Urine Benzodiazepines Screen NEG Urine Cocaine Metabolite NEG Urine Marijuana (THC) POS Assessment and Plan 22 F with polypharmacy overdose with suicide gesture with note, did have witnessed seizure here while inpatient Pt was seen by psychiatry and they feel will benefit from inpatient commitment once medically cleared seizure, from OD medications, will use Keppra for now until pt has chance to metabolize medications, EEG and MRI brain are negative tobacco and Cannibis abuse, counselled on cessation , nicotine patch alcohol abuse counselled on cessation concern for , serum preg negative, discussed control and possibly getting STD eval in future as outpt
[2017-09-14] MEDS: NICOTINE 14 MG/24 HR TDSY TD SCH (16:42)
[2017-09-14] MEDS: LEVETIRACETAM 500 MG TAB PO SCH (19:36)
[2017-09-15] VITALS (8 sets, daily range): BP systolic 93–118; BP diastolic 53–79; PULSE 64–86; TEMP 36.4–37.4; O2SAT 95–100
[2017-09-15] MEDS: LEVETIRACETAM 500 MG TAB PO SCH ×2 (09:25→20:57)
[2017-09-15] MEDS: NICOTINE 14 MG/24 HR TDSY TD SCH (09:26)
[2017-09-15] MEDS: ONDANSETRON INJ 2 MG/ML 2 ML VIAL IV PRN (13:13)
--- NOTE | 2017-09-15 13:56 | Psychiatric Progress Notes ---
Psychiatric Progress Note Date of Service Sep 15, 2017. 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 CC: "I thought about it, and I'm not going." Interval history: Reviewed the records, patient presented after a polysubstance overdose in a suicide attempt, drug screen positive for MDMA, marijuana, and ethyl alcohol level CLXVII. Had a seizure yesterday and was started on Keppra. She was seen by YARELIS Ramsay, for the initial consultation yesterday, and at that time was refusing recommendations for an inpatient psychiatric admission after medical clearance. Per nursing notes, she made statements that she knows what to say so she won't be admitted, and has now been seen by a psychiatric liaison nurses and to psychiatric clinicians and has insistently stated that she does not want inpatient treatment and doesn't believe she needs it. She has made inappropriate sexual comments to male staff. She reported feeling unsteady on her feet and required staff assistance to get out of bed, and states she is nauseated and has not eaten anything in 2 days. On my assessment, she states she is feeling a bit more steady on her feet, but continues to feel nauseated whenever she eats, but just took a new medication for nausea. She talks at length about the reasons that she doesn't want psychiatric treatment, stating that she has been admitted before and didn't like it, things will make her more depressed, just wants to leave the hospital, wants to get a job and move back home with her parents, and says that the last time she was admitted psychiatrically, she "signed myself out the first day." She admits that she took an overdose in a suicide attempt, but states she's decided to change her life, doesn't want to smoke or drink anymore, and wants to get a job at a hospital. We discussed the difference between a 201 voluntary admission and a 302 involuntary admission, and she also discussed this with other mental health unit staff. She states that she has "thought about it, and I'm not doing it." She says her family is coming to town on Wednesday, and she plans to move back home to [place]. Again reviewed the recommendation for inpatient treatment and the reasons that we would be concerned about discharging her after such a serious suicide attempt. Reviewed her 302 petition, which was completed by police, and states that they responded to a call about an overdose, the patient was convulsing on the floor, and her roommate stated that they found her writing a letter, and she became aggressive when they asked her about it. She then told them it was a suicide note, and then put a handful of prescription pills in her mouth. She then locked herself in her bedroom. The suicide note is attached to the petitioning statement, makes angry statements about people who have mistreated her, and states she loves her family, is sorry for hurting everyone, "with the depression, life is not worth it. I can't do this anymore." At the end it states "I love you ---, ----, and ---, but no one else.... You have all killed me." ROS: + for unsteadiness, dizziness, nausea Well nourished, well developed WM appearing stated age. Estimate hospital gown and adequately groomed. Mildly irritable, labile, near tears at times. Speech is productive, loud at times. Thoughts are goal directed. The patient denied suicidal and homicidal ideation currently but admits she overdosed in a suicide attempt. Did not appear to be responding to internal stimuli. Cognition was grossly intact. Alert and oriented to person, place and time. Intelligence is consistent with level of education. Insight and and judgment are impaired. Diagnosis: Recurrent severe depression, cannabis abuse, status post suicide attempt by overdose Recommendations: 1. Agree that inpatient psychiatric treatment is indicated and will recommend it be pursued on an involuntary basis, given her persistent refusal to agree to voluntary treatment after discussing this with 4 different [facility] staff in the past day. In addition, she indicates that in the past she has signed herself out of treatment prematurely. Once she is medically stable for transfer (able to walk independently and tolerate oral intake), the [facility] delegate can be contacted to issue the warrant.
--- NOTE | 2017-09-15 17:22 | Progress Note ---
Subjective Date of Service: Sep 15, 2017. Subjective this pt is with some erratic behavior but does redirect well, I spoke to her mother and she will be travelling to our facility tomorrow to discuss her disposition. Problem List Medical Problems: (1) Alcohol abuse Status: Acute (2) Alcoholic intoxication Status: Acute (3) Polysubstance overdose Status: Acute (4) Suicidal ideation Status: Acute Review of Systems Constitutional: No fever, No chills, No weakness, No fatigue Respiratory: No cough, No shortness of breath, No dyspnea on exertion Cardiac: No chest pain, No PND, No edema Abdomen: No pain, No nausea, No vomiting, No diarrhea Musculoskeletal: No joint pain, No muscle pain, No swelling Psychiatric: + depression symptoms, + anxiety, No anhedonism, No insomnia, No substance abuse Objective Vital Signs Date Time Temp Pulse Resp B/P (MAP) Pulse Ox O2 Delivery O2 Flow Rate FiO2 09/15/17 16:00 96 Room Air 09/15/17 15:07 37.4 82 20 103/71 (82) 96 Room Air 09/15/17 12:00 Room Air 09/15/17 11:08 37.1 72 22 107/71 (83) 98 Room Air 09/15/17 08:00 Room Air 09/15/17 07:08 36.5 65 22 93/53 (66) 100 Room Air 09/15/17 04:14 36.4 80 18 109/73 (85) 99 Room Air 09/15/17 04:00 Room Air 09/15/17 00:00 Room Air 09/14/17 23:25 36.5 86 18 106/61 (76) 97 Room Air 09/14/17 20:00 Room Air 09/14/17 19:05 122/79 (93) Physical Exam General Appearance: + mild distress, + thin Eyes: normal inspection, sclerae normal Neck: supple, no JVD Respiratory/Chest: chest non-tender, lungs clear, normal breath sounds Cardiovascular: regular rate, rhythm, no murmur Abdomen: normal bowel sounds, non tender, soft Extremities: no pedal edema, no calf tenderness Neurologic/Psychiatric: alert, oriented x 3 Assessment and Plan 22 F with polypharmacy overdose with suicide gesture with note, did have witnessed seizure here while inpatient Pt was seen by psychiatry and they feel will benefit from inpatient commitment once medically cleared, the patients mother would like to take her home and have her see her psychiatrist and possible enroll in an inpatient or outpt program there. The patients mother, Vanessa, feels that she will assume risk of harm to her daughter if she takes her home understanding that she will be ultimately responsible to protect her from herself. WE will have a family meeting tomorrow 09/16 seizure, from OD medications, will use Keppra for now until pt has chance to metabolize medications, EEG and MRI brain are negative tobacco and Cannibis abuse, counselled on cessation , nicotine patch has helped symptoms alcohol abuse counselled on cessation, pt states she has a desire to stop concern for , serum preg negative, discussed control and possibly getting STD eval in future as outpt
[2017-09-16] VITALS: O2SAT 95
[2017-09-16 03:25] VITALS: BP 85/55; PULSE 62; TEMP 36.9; O2SAT 97
[2017-09-16 04:00] VITALS: BP 93/55; O2SAT 97
[2017-09-16] MEDS: ONDANSETRON INJ 2 MG/ML 2 ML VIAL IV PRN (06:48)
[2017-09-16 07:02] VITALS: BP 111/83; PULSE 72; TEMP 36.7; O2SAT 98
[2017-09-16] MEDS: NICOTINE 14 MG/24 HR TDSY TD SCH (07:51)
[2017-09-16] MEDS: LEVETIRACETAM 500 MG TAB PO SCH ×2 (07:51→17:46)
[2017-09-16 11:26] VITALS: BP 90/53; PULSE 61; TEMP 36.7; O2SAT 98
[2017-09-16 15:06] VITALS: BP 106/84; PULSE 66; TEMP 36.8; O2SAT 98
[2017-09-16] MEDS ORDERED: LEVE500T13 PO (17:22)
--- NOTE | 2017-09-16 17:27 | Discharge Instructions ---
Discharge Instructions Date of Service Sep 16, 2017. Admission Reason for Admission: Intentional Overdose Of Drug Tablet Form,Seizure Discharge Discharge Diagnosis / Problem: suiscide gestrure, seizure Discharge Goals Goal(s): Diagnostic testing, Therapeutic intervention Activity Recommendations Activity Limitations: as noted below Lifting Limitations: until after follow-up appointment (with psychiatrist) Sugey, you are being released into the care of your mother. Given the serious nature of your recent decisions to harm yourself, I have entrusted you to be in the company of a safe family member or friend for the next few weeks. You had given me assurance that you will comply with this request and devote the time and effort required toward healing yourself and creating a safe path for you future. Dr. Dickey . Current Hospital Diet Patient's current hospital diet: Regular Diet Discharge Diet Recommended Diet: Regular Diet Pending Studies Studies pending at discharge: no Medical Emergencies . Who to Call and When: Medical Emergencies: If at any time you feel your situation is an emergency, please call 911 immediately. . Non-Emergent Contact Non-Emergency issues call your: Primary Care Provider, Specialist (psycinatrist ) Call Non-Emergent contact if: temperature is above 101, your pain is unusual for you . . "Provider Documentation" section prepared by Robb Dickey. . VTE Core Measure Inpt VTE Proph given/why not?: SCD's
--- NOTE | 2017-09-16 17:45 | Discharge Summary ---
Discharge Summary Date of Service Sep 16, 2017. Discharge Summary Admission Date: Sep 14, 2017 at 01:07 Discharge Date: Sep 16, 2017 Discharge Disposition: Home (with the supervision of her mother who is presnet at discharge) Principal Diagnosis: suiscide gesture, seizure Procedures: CT head neg, MRI brain neg, EEG no seizure focus Consultations: Psychiatric consult recommend involuntary committal, I understand the serious nature of the offense and the recommendation, since the patient is from out of town and her mother would like to have her closer to home, we had a 2 hour meeting the day of discharge. her mother spent time with patient, we spoke together with patient and i spoke to her mother privately. 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 The pt assured me she no longer wishes to harm herself in any way and will comply with her mothers requests for restriction of freedom when home Medication Reconciliation New Medications: Levetiracetam (Keppra) 500 Mg Tab 500 MG PO BID, #14 TAB Discharge Exam Review of Systems: Constitutional: No fever, No chills Cardiovascular: No chest pain, No orthopnea Abdomen: No pain, No nausea, No diarrhea Physical Exam: General Appearance: WD/WN, no apparent distress Neck: supple, no JVD Respiratory/Chest: chest non-tender, lungs clear, normal breath sounds Cardiovascular: regular rate, rhythm, no murmur Neurologic/Psychiatric: alert, oriented x 3 Hospital Course 22 F with polypharmacy overdose with suicide gesture with note, did have witnessed seizure here while inpatient Pt was seen by psychiatry and they feel will benefit from inpatient commitment once medically cleared, the patients mother would like to take her home and have her see her psychiatrist and possible enroll in an inpatient or outpt program there. The patients mother, Vanessa, feels that she will assume risk of harm to her daughter if she takes her home understanding that she will be ultimately responsible to protect her from herself. The patient was released to the responsibility of her mother. seizure, from OD medications, will use Keppra for one week after discharge, will see her psychiatrist to determine if it should be continued, EEG and MRI brain are negative tobacco and Cannibis abuse, counselled on cessation , nicotine patch has helped symptoms alcohol abuse counselled on cessation, pt states she has a desire to stop concern for , serum preg negative, requested additional urine test also negative, discussed control and possibly getting STD eval in future as outpt extended time was spend on this discharge all total 2 hours and 15 mintues Total Time Spent: Greater than 30 minutes This includes examination of the patient, discharge planning, medication reconciliation, and communication with other providers. Discharge Instructions Please refer to the electronic Patient Visit Report (Discharge Instructions) for additional information.
== END 2017-09-16 18:15 | disposition home or self-care (01) | DRG 918 ==
LOC: EDBD 22:23 → C.EDB 22:25 → C.2E 09-14 01:07 → EDBEDREQ 09-14 01:27 → ENRESERV 09-14 01:28 → C.EDA 09-14 01:34
PROVIDERS: ADMIT Internal Medicine; ATTEND Internal Medicine
DX: T50.902A Poisoning by unspecified drugs, medicaments and biological substances, intentional self-harm, initial encounter (principal); R45.851 Suicidal ideations; F33.2 Major depressive disorder, recurrent severe without psychotic features; Z81.8 Family history of other mental and behavioral disorders; R56.9 Unspecified convulsions; F12.10 Cannabis abuse, uncomplicated